=== PATIENT | female | born 1985 | race Caucasian/White ===

== ENCOUNTER 2016-11-05 21:54 | Emergency (ER) | END 2016-11-06 02:12 | disposition home or self-care (01) | DX: N75.0 Cyst of Bartholin's gland (principal); J45.909 Unspecified asthma, uncomplicated | CPT/HCPCS: 71010; 94664; Z7502; Z7610 ==

== ENCOUNTER 2017-01-27 14:09 | Emergency (ER) | payer OTHER ==
[~2017-01-27] VITALS: Ht 170.2 cm; Wt 126.5 kg
[~2017-01-27 14:09] MED LIST: ALBU8.5H3 INH; BACTDS PO; BENZ100C70 PO; CEPH-443 PO; PRED20TA PO
[2017-01-27 14:38] VITALS: Ht 170.2 cm; Wt 126.5 kg
[2017-01-27] MEDS ORDERED: DICLOFENAC SODIUM 37.5 MG/ML VIAL IV STA (16:03)
[2017-01-27] MEDS ORDERED: ONDANSETRON 4 MG INJ IV STA (16:03)
[2017-01-27] MEDS ORDERED: SOD CHLORIDE 0.9% 1,000 ML IV STA (16:03)
[2017-01-27 16:47] LABS: ADD SCAN DIFF NO
[2017-01-27 16:48] LABS: BASOPHILS % 0.1 % (0.0-2.0); EOSINOPHILS # 0.1 10^3/ul (0.0-0.5); EOSINOPHILS % 0.9 % (0.0-7.0); HEMOGLOBIN 13.1 g/dl (12.0-16.0); LYMPHOCYTES # 2.1 10^3/ul (0.8-2.9); LYMPHOCYTES % 14.3 % (15.0-51.0); MEAN CORPUSCULAR HEMOGLOBIN 27.4 pg (29.0-33.0); MEAN CORPUSCULAR VOLUME 85.8 fl (82.0-101.0); MEAN PLATELET VOLUME 10.2 fl (7.4-10.4); MONOCYTE # 0.6 10^3/ul (0.3-0.9); MONOCYTES % 3.9 % (0.0-11.0); NEUTROPHIL # 11.8 10^3/ul (1.6-7.5); NEUTROPHILS % 80.1 % (39.0-77.0); PLATELET COUNT 377 10^3/UL (140-415); RED BLOOD COUNT 4.78 10^6/ul (4.20-5.40); RED CELL DISTRIBUTION WIDTH 13.7 % (11.5-14.5); WHITE BLOOD COUNT 14.7 10^3/ul (4.8-10.8)
[2017-01-27 17:01] LABS: ALBUMIN 4.2 g/dl (3.3-4.9); ALBUMIN/GLOBULIN RATIO 1.1; BILIRUBIN,INDIRECT 0.2 mg/dl (0-1.1); BILIRUBIN,TOTAL 0.2 mg/dl (0.2-1.3); CALCIUM 9.1 mg/dl (8.4-10.2); CREATININE 0.59 mg/dl (0.44-1.00); POTASSIUM 3.6 mmol/L (3.5-5.1)
--- NOTE | 2017-01-27 17:20 | ERD ---
ER Documentation Chief Complaint Date/Time DATE: 01/27/17 TIME: 17:18 Chief Complaint AP W/VOMITTING & DIARRHEA HPI Patient is a 31-year-old female who presents with mid abdominal pain with nausea vomiting and diarrhea that began earlier today. Denies any change with food. Denies any dysuria hematuria or increased urinary frequency. Pain is moderate throbbing. Nonradiating. Does not believe she is . ROS All systems reviewed and are negative except as per history of present illness. Medications Home Meds Active Scripts Prednisone* (Prednisone*) 20 Mg Tab, 40 MG PO DAILY for 4 Days, TAB Prov:ANATAANGEL LUIS GARRISON PA-C 11/06/16 Albuterol Sulfate* (Proair HFA*) 8.5 Gm Hfa.aer.ad, 2 PUFF INH Q4, #1 INHALER Prov:ANATARIANGEL LUIS AYALA PA-C 11/06/16 Benzonatate* (Tessalon Perle*) 100 Mg Capsule, 100 MG PO Q8H Y for COUGH for 14 Days, CAP Prov:ANATARIANANGEL LUIS PA-C 11/06/16 Sulfamethoxazole-Trimethoprim* (Bactrim* DS) 800-160 Mg Tab, 1 TAB PO BID for 5 Days, TAB Prov:SHOSHANNANTARIANGEL LUIS AYALA PA-C 11/06/16 Cephalexin* (Keflex*) 500 Mg Capsule, 500 MG PO QID for 5 Days, CAP Prov:SHOOSHTARIAN,NEGINAZ PA-C 11/06/16 Allergies Allergies: Coded Allergies: No Known Allergy (Verified , 04/21/14) PMhx/Soc History of Surgery: Yes (cholecystectomy) Anesthesia Reaction: No Hx Neurological Disorder: No Hx Respiratory Disorders: Yes (asthma) Hx Cardiac Disorders: No Hx Psychiatric Problems: No Hx Miscellaneous Medical Probl: No Hx Alcohol Use: No Hx Substance Use: No Hx Tobacco Use: No FmHx Family History: No diabetes Physical Exam Vitals Vital Signs Date Time Temp Pulse Resp B/P Pulse Ox O2 Delivery O2 Flow Rate FiO2 01/27/17 14:38 98.3 100 18 140/100 98 Physical Exam General: well developed, well nourished, alert, nontoxic, no distress Head: normocephalic, atraumatic Eyes: PERRL, normal conjunctiva Neck: Supple, nontender, no lymphadenopathy, no midline tenderness Respiratory: Clear to auscaultation bilaterally, speaks in full sentences, no use of accesory muscles or labored breathing, no rales, ronchi, or wheezing Cardiovascular: RRR, No murmurs GI: soft, non tender, non distended, negative murphys sign, negative mcburneys point tenderness, no cva tenderness bilaterally, no rebound or guarding Back: no midline tenderness, no step offs or bony abnormalities, sensation to light touch in tact Result Diagram: 01/27/17 1640 01/27/17 1640 Results 24 hrs Laboratory Tests Test 01/27/17 16:40 White Blood Count 14.710^3/ul Red Blood Count 4.7810^6/ul Hemoglobin 13.1g/dl Hematocrit 41.0% Mean Corpuscular Volume 85.8fl Mean Corpuscular Hemoglobin 27.4pg Mean Corpuscular Hemoglobin Concent 32.0g/dl Red Cell Distribution Width 13.7% Platelet Count 39221^3/UL Mean Platelet Volume 10.2fl Neutrophils % 80.1% Lymphocytes % 14.3% Monocytes % 3.9% Eosinophils % 0.9% Basophils % 0.1% Nucleated Red Blood Cells % 0.0/100WBC Neutrophils # 11.810^3/ul Lymphocytes # 2.110^3/ul Monocytes # 0.610^3/ul Eosinophils # 0.110^3/ul Basophils # 0.010^3/ul Nucleated Red Blood Cells # 0.010^3/ul Sodium Level 138mmol/L Potassium Level 3.6mmol/L Chloride Level 102mmol/L Carbon Dioxide Level 28mmol/L Anion Gap 12 Blood Urea Nitrogen 11mg/dl Creatinine 0.59mg/dl Glucose Level 113mg/dl Calcium Level 9.1mg/dl Total Bilirubin 0.2mg/dl Direct Bilirubin 0.00mg/dl Indirect Bilirubin 0.2mg/dl Aspartate Amino Transf (AST/SGOT) 32IU/L Alanine Aminotransferase (ALT/SGPT) 34IU/L Alkaline Phosphatase 106IU/L Total Protein 8.0g/dl Albumin 4.2g/dl Globulin 3.80g/dl Albumin/Globulin Ratio 1.10 Lipase 51U/L Current Medications Medications (Trade) Dose Ordered Sig/Sania Route PRN Reason Start Time Stop Time Status Last Admin Dose Admin Sodium Chloride (NS) 1,000 ml @ 1,000 mls/hr Q1H STAT IV 01/27/17 16:03 01/27/17 17:02 DC 01/27/17 16:32 Ondansetron HCl (Zofran Inj) 4 mg ONCE STAT IV 01/27/17 16:03 01/27/17 16:05 DC 01/27/17 16:32 Diclofenac Sodium (Dyloject) 37.5 mg ONCE STAT IV 01/27/17 16:03 01/27/17 16:05 DC 01/27/17 16:32 Procedures/MDM Patient presents with abdominal pain. She is well-appearing in no distress. Examination is unremarkable she has no tenderness throughout her entire abdomen. I doubt appendicitis, gallbladder disease, kidney disease or any other emergent cause of her symptoms. Her labs were unremarkable. Urine still pending Departure Diagnosis: Primary Impression: Abdominal pain Condition: Stable MANJU TAPIA PA-C Jan 27, 2017 17:20
[2017-01-27] MEDS ORDERED: IBUP-1542 PO (17:21)
[2017-01-27] MEDS ORDERED: ONDA-43 PO (17:21)
[2017-01-27] MEDS ORDERED: FAMOTIDINE 20 MG INJ IV ONE (19:30)
[2017-01-27 20:38] LABS: URINE BLOOD (Dip) POC Trace-intact (NEGATIVE)
[2017-01-27 20:47] VITALS: BP 138/65; PULSE 86; RESP 18; TEMP 98
[2017-01-27] MEDS ORDERED: ACET500C5 PO (21:06)
[2017-01-27] MEDS ORDERED: FAMO-18 PO (21:06)
== END 2017-01-27 21:16 | disposition home or self-care (01) ==
LOC: FTE 14:09
DX: R10.9 Unspecified abdominal pain (principal); R11.10 Vomiting, unspecified; J45.909 Unspecified asthma, uncomplicated
CPT/HCPCS: 36415; 80053; 81003; 83690; 85025; 96374; 96375; J2405; J7030; Z7502; Z7610

== ENCOUNTER 2017-10-06 22:43 | Emergency (ER) | END 2017-10-07 03:35 | disposition home or self-care (01) ==

== ENCOUNTER 2018-08-21 23:21 | Emergency (ER) | END 2018-08-22 02:24 | disposition home or self-care (01) ==

== ENCOUNTER 2019-02-11 00:04 | Emergency (ER) | payer OTHER ==
[~2019-02-11] VITALS: Ht 172.7 cm; Wt 128.0 kg
[~2019-02-11 00:04] MED LIST changes: +ACET500C5 PO; -ALBU8.5H3 INH; +ALBU8.5H8 INH; +AMOX500C2 PO; +AZIT250T PO; +BENZ-6 PO; -BENZ100C70 PO; +CETI10CA PO; +D-ME473S2 PO; +FAMO-96 PO; +GUAI473L22 PO; +IBUP-1542 PO; +ONDA4TAB13 PO; +PRED50TA PO
[2019-02-11 00:08] VITALS: Ht 172.7 cm; Wt 128.0 kg
[2019-02-11] MEDS ORDERED: METHYLPREDNISOLONE 125 MG INJ IV STA (02:13)
[2019-02-11] MEDS ORDERED: ALBUTEROL 0.5% (NEB) 2.5 MG/0.5 ML AMP INH STA (02:13)
--- NOTE | 2019-02-11 02:23 | ERD ---
ER Documentation Chief Complaint Chief Complaint SOB X 1 WEEK HPI This is a 33-year-old female who says she has asthma and is having off-and-on exacerbations throughout the week. She says she is having a cough and wheezing but no fever. She says to take a deep breath and will make her cough worse. She does not have any nebulizer machine or inhaler at home. She says she went to urgent care 2 days ago for the same thing and gave her some breathing treatments and she got better ROS All systems reviewed and are negative except as per history of present illness. Medications Home Meds Active Scripts Albuterol Sulfate* (Proair HFA*) 8.5 Gm Hfa.aer.ad, 2 PUFF INH Q4, #1 INHALER Prov:LALITO ABARCA DO 02/11/19 Albuterol Sulfate* (Albuterol Sulfate* Neb) 0.083%-3 Ml Neb, 2.5 MG NEB Q4 PRN for SHORTNESS OF BREATH, #30 EA Prov:LALITO ABARCA DO 02/11/19 Prednisone* (Prednisone*) 20 Mg Tab, 60 MG PO DAILY for 4 Days, TAB Prov:LALITO ABARCA. DO 02/11/19 Albuterol Sulfate* (Proair HFA*) 8.5 Gm Hfa.aer.ad, 2 PUFF INH Q4, #1 INHALER Prov:ANGEL LUIS PARIS PA-C 11/06/16 Benzonatate* (Tessalon Perle*) 100 Mg Capsule, 100 MG PO Q8H PRN for COUGH for 14 Days, CAP Prov:ANGEL LUIS PARIS PA-C 11/06/16 Discontinued Scripts Albuterol Sulfate* (Proair HFA*) 8.5 Gm Hfa.aer.ad, 2 PUFF INH Q6, #1 INHALER Prov:OVIDIO BARRERA PA-C 08/22/18 Prednisone* (Prednisone*) 20 Mg Tab, 60 MG PO DAILY for 4 Days, TAB Prov:OVIDIO BARRERA PA-C 08/22/18 Azithromycin* (Zithromax*) 250 Mg Tablet, 250 MG PO .TRAV DIRECTED, #6 TAB TAKE 500 MG (2 TABS) THE FIRST DAY THEN 250 MG (1 TAB) DAYS 2-5 Prov:HOLLYOVIDIO HolbrookC 08/22/18 Dextromethorphan Hb-Promethazine Hcl* (Promethazine DM* Syrup) 473 Ml Syrup, 5 ML PO Q6 PRN for COUGH, #4 OZ Prov:HOLLYOVIDIOC 08/22/18 Ibuprofen* (Motrin*) 600 Mg Tab, 600 MG PO Q6H PRN for PAIN AND OR ELEVATED TEMP, #30 TAB Prov:BONNIE MELÉNDEZ NP 10/07/17 Amoxicillin* (Amoxicillin*) 500 Mg Cap, 500 MG PO TID for 10 Days, CAP Prov:BONNIE MELÉNDEZ NP 10/07/17 Prednisone* (Prednisone*) 50 Mg Tablet, 50 MG PO DAILY for 5 Days, TAB Prov:BONNIE MELÉNDEZ NP 10/07/17 Cetirizine Hcl* (Zyrtec*) 10 Mg Capsule, 10 MG PO DAILY, #30 TAB.CHEW Prov:BONNIE MELÉNDEZ NP 10/07/17 Guaifenesin-Codeine Phosphate* (Guaifenesin* AC Cough Syrup) 473 Ml Liquid, 10 ML PO Q4H PRN for COUGH, #120 ML Prov:BONNIE MELÉNDEZ NP 10/07/17 Famotidine* (Pepcid*) 20 Mg Tablet, 20 MG PO BID, #30 TAB Prov:SHADE FIELDS PA-C 01/27/17 Acetaminophen* (Tylophen*) 500 Mg Capsule, 1 CAP PO Q6H PRN for PAIN AND OR ELEVATED TEMP, #30 CAP Prov:SHADE FIELDS PA-C 01/27/17 Ondansetron Hcl* (Zofran*) 4 Mg Tab, 4 MG PO Q4H PRN for NAUSEA AND OR VOMITING, #20 TAB Prov:MANJU TAPIA PA-C 01/27/17 Prednisone* (Prednisone*) 20 Mg Tab, 40 MG PO DAILY for 4 Days, TAB Prov:ANGEL LUIS PARIS PA-C 11/06/16 Sulfamethoxazole-Trimethoprim* (Bactrim* DS) 800-160 Mg Tab, 1 TAB PO BID for 5 Days, TAB Prov:ANGEL LUIS PARIS PA-C 11/06/16 Cephalexin* (Keflex*) 500 Mg Capsule, 500 MG PO QID for 5 Days, CAP Prov:ANGEL LUIS PARIS PA-C 11/06/16 Allergies Allergies: Coded Allergies: No Known Allergy (Unverified , 02/11/19) PMhx/Soc History of Surgery: Yes (cholecystectomy, C SECTIONS ) Anesthesia Reaction: No Hx Neurological Disorder: No Hx Respiratory Disorders: Yes (asthma) Hx Cardiac Disorders: No Hx Psychiatric Problems: No Hx Miscellaneous Medical Probl: No Hx Alcohol Use: No Hx Substance Use: No Hx Tobacco Use: No Smoking Status: Never smoker FmHx Family History: No coronary disease Physical Exam Vitals Vital Signs Date Temp Pulse Resp B/P (MAP) Pulse Ox O2 O2 Flow FiO2 Time Delivery Rate 02/11/19 86 22 170/80 96 Room Air 04:53 (110) 02/11/19 101 20 97 21 02:20 02/11/19 99.8 114 22 147/98 98 00:08 (114) Physical Exam Const: Well-developed, well-nourished Head: Atraumatic, normocephalic Eyes: Normal Conjunctiva, PERRLA, EOMI, normal sclera, no nystagmus ENT: Normal External Ears, Nose and Mouth, moist mucus membranes. Neck: Full range of motion. No meningismus, no lymphadenopathy. Resp: Coarse rhonchi bilaterally in the lower lobes Cardio: Regular rate and rhythm, no murmurs, S1 S2 present Abd: Soft, non tender x 4, non distended. Normal bowel sounds, no guarding or rebound, no pulsitile abdominal masses or bruits Skin: No petechiae or rashes, no ecchymosis , no maculopapular rash Back: No midline or flank tenderness Ext: No cyanosis, or edema, FROM x 4, normal inspection, neurovascularly intact x 4 Neur: Awake and alert, STR 5/5 x 4, sensation intact x 4, no focal findings, cerebellum intact Psych: Normal Mood and Affect Results 24 hrs Current Medications Medications Dose Sig/Sania Start Time Status Last (Trade) Ordered Route PRN Stop Time Admin Dose Reason Admin Albuterol 10 mg ONCE STAT 02/11/19 DC 02/11/19 (Proventil INH 02:13 02:19 0.5% (Neb)) 02/11/19 02:14 125 mg ONCE STAT 02/11/19 DC 02/11/19 Methylprednis IV 02:13 02:16 olone Sodium 02/11/19 02:14 Succinate (Solu-Medrol) Procedures/MDM Patient: KIM GIRALDO : 1985 Age: 33 Sex: F MR #: [id number] DOS: 02/11/19 0213 Ordering MD: LALITO ABARCA DO Location: E/R Room/Bed: PROCEDURE: CHEST - 1 VIEW CLINICAL INDICATION: 33-year-old female with shortness of breath and asthma exacerbation. TECHNIQUE: A single frontal AP portable view of the chest was performed. The images were reviewed on a PACS workstation. COMPARISON: CR CHEST 11/06/2016; CR CHEST 04/21/2014; CR CHEST 05/07/2012 FINDINGS: The cardiomediastinal silhouette has a normal appearance. There is a shallow inspiration. There is no evidence for an infiltrate. There is no evidence for congestive heart failure. There is no evidence for pneumothorax. The osseous structures are intact. IMPRESSION: No evidence for active cardiopulmonary disease. .Raf Galicia MD, MD Date Time Electronically viewed and signed by .Raf Galicia MD, MD on 02/11/2019 04:49 .M/ CC: LAILTO ABARCA DO [phone] Patient received nebulizer and steroids. She is feeling much better now is ready to go home she is clear breath sounds and O2 sats are 97% on room air. Patient feels much better at this time, and vital signs are normal, symptoms have improved. I did give strict instructions to return to the ED if symptoms continue or worsen, patient will otherwise follow-up with primary care physicia n. Patient understood instructions and agreed to plan. Disclaimer: Inadvertent spelling and grammatical errors are likely due to EHR/dictation software use and do not reflect on the overall quality of patient care. Also, please note that the electronic time recorded on this note does not necessarily reflect the actual time of the patient encounter. Departure Diagnosis: Primary Impression: Asthma exacerbation Asthma severity: mild Asthma persistence: unspecified Qualified Codes: J45.901 - Unspecified asthma with (acute) exacerbation Condition: LALITO Rangel DO February 11, 2019 02:23
[2019-02-11] MEDS ORDERED: PRED20TA PO (05:21)
[2019-02-11] MEDS ORDERED: ALBU2.5V3 NEB (05:21)
[2019-02-11] MEDS ORDERED: ALBU8.5H8 INH (05:21)
[2019-02-11 05:31] VITALS: BP 148/69; PULSE 98; RESP 19
== END 2019-02-11 05:33 | disposition home or self-care (01) ==
LOC: E/R 00:04
DX: J45.901 Unspecified asthma with (acute) exacerbation (principal)
CPT/HCPCS: 71045; 94644; 96374; J2930; Z7502; Z7610

== ENCOUNTER 2019-03-09 21:10 | Emergency (ER) | payer OTHER ==
[~2019-03-09] VITALS: Ht 162.6 cm; Wt 128.0 kg
[~2019-03-09 21:10] MED LIST changes: -ACET500C5 PO; +ALBU2.5V3 NEB; -AMOX500C2 PO; -AZIT250T PO; -BACTDS PO; -CEPH-443 PO; -CETI10CA PO; -D-ME473S2 PO; -FAMO-96 PO; -GUAI473L22 PO; -IBUP-1542 PO; -ONDA4TAB13 PO; -PRED50TA PO
[2019-03-09 21:16] VITALS: Ht 162.6 cm; Wt 128.0 kg
--- NOTE | 2019-03-09 22:50 | ERD ---
ER Documentation Chief Complaint Chief Complaint asthma attack, still having cough/diff breathing; not in distress HPI 33-year-old female, with history of asthma, presents the emergency department, complaining of persistent cough and wheezing for 2 weeks. The patient has been using her albuterol nebulized and inhaled without improvement of the symptoms. She denies fever, no chills. ROS All systems reviewed and are negative except as per history of present illness. Medications Home Meds Active Scripts Albuterol Sulfate* (Proair HFA*) 8.5 Gm Hfa.aer.ad, 2 PUFF INH Q4, #1 INHALER Prov:LALITO ABARCA DO 02/11/19 Albuterol Sulfate* (Albuterol Sulfate* Neb) 0.083%-3 Ml Neb, 2.5 MG NEB Q4 PRN for SHORTNESS OF BREATH, #30 EA Prov:LALITO ABARCA DO 02/11/19 Prednisone* (Prednisone*) 20 Mg Tab, 60 MG PO DAILY for 4 Days, TAB Prov:LALITO ABARCA DO 02/11/19 Albuterol Sulfate* (Proair HFA*) 8.5 Gm Hfa.aer.ad, 2 PUFF INH Q4, #1 INHALER Prov:ANGEL LUIS PARIS PA-C 11/06/16 Benzonatate* (Tessalon Perle*) 100 Mg Capsule, 100 MG PO Q8H PRN for COUGH for 14 Days, CAP Prov:ANGEL LUIS PARIS PA-C 11/06/16 Allergies Allergies: Coded Allergies: No Known Allergy (Unverified , 02/11/19) PMhx/Soc History of Surgery: Yes (cholecystectomy, C SECTIONS ) Anesthesia Reaction: No Hx Neurological Disorder: No Hx Respiratory Disorders: Yes (asthma) Hx Cardiac Disorders: No Hx Psychiatric Problems: No Hx Miscellaneous Medical Probl: No Hx Alcohol Use: No Hx Substance Use: No Hx Tobacco Use: No Smoking Status: Never smoker Physical Exam Vitals Vital Signs Date Temp Pulse Resp B/P (MAP) Pulse Ox O2 O2 Flow FiO2 Time Delivery Rate 03/09/19 99.5 98 20 157/93 100 21:16 (114) Physical Exam Patient alert, oriented, mild respiratory distress with cough. HEAD: Normocephalic, atraumatic. EYES: PERRLA, EOMI, Sclera and conjunctiva appear normal. NOSE: clear rhinorrhea . EARS: Canals clear, tympanic membranes WNL. MOUTH: normal lips and tongue, no oral lesions. THROAT: Erythema of the oropharynx, no tonsillar exudates. NECK: Supple, No lymphadenopathy. Full ROM without pain or tenderness. HEART: RRR, no rubs, murmurs, clicks or gallops. LUNGS: Bilateral inspiratory and expiratory wheezing to auscultation. ABDOMEN: Soft, non-tender without masses or hepatosplenomegaly. EXTREMITIES: No edema bilaterally. BACK: Full ROM, no deformity, normal back exam NEURO: Cranial nerves grossly intact, no motor or sensory deficit SKIN: No rashes, no petechia Results 24 hrs Current Medications Medications Dose Sig/Sania Start Time Status Last (Trade) Ordered Route PRN Stop Time Admin Dose Reason Admin Albuterol 5 mg ONCE STAT 03/09/19 DC (Proventil NEB 23:00 03/09/19 0.083% (Neb)) 23:03 Ipratropium 0.5 mg ONCE STAT 03/09/19 DC [place] NEB 23:00 03/09/19 (Atrovent 23:03 0.02% (Neb)) Prednisone 60 mg ONCE STAT 03/09/19 DC 03/09/19 (Prednisone) PO 23:00 03/09/19 23:11 23:03 Procedures/MDM At the time of discharge, vital signs stable, no respiratory distress. Differential diagnosis include but not limited to: Respiratory infection bacterial/viral/fungal. Asthma/COPD, pneumonitis, allergies, GERD. Less likely foreign body aspiration, cardiac related, aspiration pneumonia, malignancy. Physical examination and clinical presentation consistent most likely with acute asthma exacerbation with early superimposed bacterial infection. During the ED course the patient remained stable, received a nebulized treatment and steroids in the ED presenting overall improvement of the symptoms, no new complaints. Clinical impression discussed with the patient who agrees with management. The patient is stable to be treated outpatient and will be discharged home. Some side effects of prescribed medications (headache, rash, nausea, vomiting, diarrhea, drowsiness, habituation, bleeding, hypertension, interactions with other medications) were reviewed. The patient was instructed to follow up with the primary care provider in the next 48h. If symptoms persist, worsen or new symptoms develop, then patient should return to the ED immediately. Disclaimer: Inadvertent spelling and grammatical errors are likely due to EHR/dictation software use and do not reflect on the overall quality of patient care. Also, please note that the electronic time recorded on this note does not necessarily reflect the actual time of the patient encounter. Departure Diagnosis: Primary Impression: Asthma with acute exacerbation Condition: Stable Patient Instructions: Asthma, Acute (Adult) Additional Instructions: Thank you very much for allowing us to participate in your care. Your health and safety is our top priority at [facility]. The evaluation in the emergency department has been done to rule out an acute emergency. Chronic, [id number] conditions may have not been evaluated; therefore, you need to follow up with a primary care provider in the next 48h. If symptoms persist, worsen or new symptoms develop, then patient should return to the ED immediately. Call your primary care doctor TOMORROW for an appointment during the next 2-4 days and bring all the information provided. Have prescriptions filled and follow precisely the directions on the label. If the symptoms get worse and your provider is unavailable, return to the Emergency Department immediately. BENSON HOOK MD Mar 09, 2019 22:50
[2019-03-09] MEDS ORDERED: IPRATROPIUM (NEB) 0.5 MG/2.5 ML AMP NEB STA (23:00)
[2019-03-09] MEDS ORDERED: ALBUTEROL 0.083% (NEB) 2.5 MG/3 ML AMP NEB STA (23:00)
[2019-03-09] MEDS ORDERED: predniSONE 20 MG TAB PO STA (23:00)
[2019-03-09] MEDS ORDERED: AZIT250T PO (23:18)
[2019-03-09] MEDS ORDERED: PRED20TA PO (23:18)
[2019-03-09] MEDS ORDERED: ALBU18HF INHALATION (23:18)
[2019-03-10 00:14] VITALS: BP 154/72; PULSE 92; RESP 17
== END 2019-03-10 00:14 | disposition home or self-care (01) ==
LOC: FTE 21:10
DX: J45.901 Unspecified asthma with (acute) exacerbation (principal)
CPT/HCPCS: 94664; J7512; Z7502; Z7610